=== PATIENT | female | born 1960 | race Caucasian/White ===

== ENCOUNTER 2021-06-24 10:43 | Emergency (ER) | payer SELFPAY ==
[~2021-06-24] VITALS: Ht 157.5 cm; Wt 67.1 kg
[2021-06-24 10:46] VITALS: BP 145/72
--- NOTE | 2021-06-24 10:53 | NUR ---
DREW. OPAL FROM [facility] C/O 01/14 CHRONIC BACK PAIN X 1 MONTH. PMH: HTN
--- NOTE | 2021-06-24 11:12 | NUR ---
DR. BRUNNER EVALUATING PT
[2021-06-24] MEDS ORDERED: KETOROLAC 15 MG/ML VIAL IM ONE (11:35)
--- NOTE | 2021-06-24 11:51 | NUR ---
PT TAKEN TO XR VIA W/C.
--- NOTE | 2021-06-24 12:02 | NUR ---
PT TAKEN TO C VIA W/C.
[2021-06-24] MEDS ORDERED: LID5T TP (12:23)
[2021-06-24] MEDS ORDERED: METH-1681 PO (12:23)
[2021-06-24 12:29] VITALS: BP 136/71
--- NOTE | 2021-06-24 12:30 | NUR ---
Patient discharged with v/s stable. Written and verbal after care instructions given FOR CHRONIC BACK PAIN and explained. Patient alert, oriented and verbalized understanding of instructions. Ambulatory with steady gait. All questions addressed prior to discharge. ID band removed. Patient advised to follow up with PMD. Rx of ROBAXINE AND LIDOCAINE given. Patient educated on indication of medication including possible reaction and side effects. Opportunity to ask questions provided and answered.
== END 2021-06-24 12:29 | disposition home or self-care (01) ==
LOC: MED 10:43
DX: M54.50 Low back pain, unspecified (principal); M53.3 Sacrococcygeal disorders, not elsewhere classified; G89.29 Other chronic pain; I10 Essential (primary) hypertension; Z79.899 Other long term (current) drug therapy
CPT/HCPCS: 72100; 96372; 99283; J1885

== ENCOUNTER 2021-09-05 18:50 | Emergency (ER) | payer MEDICAID ==
[~2021-09-05] VITALS: Ht 167.6 cm; Wt 68.0 kg
[~2021-09-05 18:50] MED LIST: LID5T TP; METH-1681 PO
[2021-09-05 19:00] VITALS: BP 138/70
--- NOTE | 2021-09-05 20:00 | NUR ---
PT TAKEN TO RADIOLOGY
[2021-09-05] MEDS ORDERED: AZITHROMYCIN 250 MG TAB PO ONE (21:20)
[2021-09-05] MEDS ORDERED: ACETAMINOPHEN EXTRA STRENGTH 500 MG TAB PO ONE (21:20)
[2021-09-05] MEDS ORDERED: ACET-10509 PO (21:23)
[2021-09-05] MEDS ORDERED: NAPR-54 PO (21:23)
[2021-09-05] MEDS ORDERED: KETOROLAC 30 MG/ML VIAL IM ONE (21:25)
[2021-09-05 21:54] VITALS: BP 142/67
[2021-09-05] MEDS ORDERED: ONDANSETRON 4 MG ODT PO ONE (22:20)
--- NOTE | 2021-09-05 23:20 | NUR ---
Patient discharged with v/s stable. Written and verbal after care instructions given and explained. Patient alert, oriented and verbalized understanding of instructions. Ambulatory with steady gait. All questions addressed prior to discharge. ID band removed. Patient advised to follow up with PMD. Rx of NAPROXEN AND TYLENOL EXTRA STRENGTH given. Patient educated on indication of medication including possible reaction and side effects. Opportunity to ask questions provided and answered.KORTNEY CALLED TO TAKE HER TO A [facility].
== END 2021-09-05 23:20 | disposition home or self-care (01) ==
LOC: MED 18:50
DX: M25.552 Pain in left hip (principal); R19.7 Diarrhea, unspecified; M54.9 Dorsalgia, unspecified; I10 Essential (primary) hypertension; Z79.899 Other long term (current) drug therapy
CPT/HCPCS: 72170; 73502; 96372; 99284; J1885; Q0162

== ENCOUNTER 2021-09-09 03:39 | Emergency (ER) | payer SELFPAY ==
[~2021-09-09] VITALS: Ht 162.6 cm; Wt 65.8 kg
[2021-09-09 03:39] VITALS: BP 134/70
[~2021-09-09 03:39] MED LIST changes: +ACET-10509 PO; +NAPR-54 PO
--- NOTE | 2021-09-09 03:39 | NUR ---
TO BED AMBULATORY
[2021-09-09] MEDS ORDERED: HYDROcodone/APAP 5/325 MG 1 TAB TAB PO ONE (03:55)
--- NOTE | 2021-09-09 04:17 | NUR ---
61 Y.O F BIBA WITH C/O CHRONIC BACK PAIN, HOMELESS, WITH MULTIPLE FALLS. PT COMPLAINS OF 10/10 PAIN IN HER BACK AND L LEG. PT ALSO STATES SHE HAS DIAHRREA. VITAL SIGNS WNL, A&PX4, SKING INTACT, NO SOB, NO CHEST PAIN. PT RESTING IN BED.
[2021-09-09] MEDS ORDERED: KETOROLAC 30 MG/ML VIAL IM ONE (05:45)
--- NOTE | 2021-09-09 05:45 | NUR ---
PT REQUESTING TO TALK TO ERMD, MADE AWARE
[2021-09-09] MEDS ORDERED: KETOROLAC 30 MG/ML VIAL ONE (05:46)
[2021-09-09 05:53] VITALS: BP 134/70
--- NOTE | 2021-09-09 05:53 | NUR ---
Patient discharged with v/s stable. Written and verbal after care instructions given and explained. Patient verbalized understanding. Ambulatory with steady gait. All questions addressed prior to discharge. Advised to follow up with PMD.
--- NOTE | 2021-09-09 05:55 | NUR ---
RECIEVED A VERBAL ORDER FOR 30MG OF KETOROLAC, ADMINISTERED IN THE LEFT DELTOID AT 05:50.
--- NOTE | 2021-09-09 05:56 | NUR ---
PT REQUESTING TO TALK TO JOSE MARTIN BEWFORE LEAVINGMD MADE AWARE
[2021-09-09] MEDS ORDERED: ACET-8386 PO (17:08)
[2021-09-10] MEDS ORDERED: TRAM50TA1 PO (08:17)
[2021-09-10] MEDS ORDERED: NAPR-1704 PO (08:17)
== END 2021-09-09 05:53 | disposition home or self-care (01) ==
LOC: MED 03:39
DX: M54.50 Low back pain, unspecified (principal); I10 Essential (primary) hypertension; Z79.899 Other long term (current) drug therapy
CPT/HCPCS: 99283; J1885

== ENCOUNTER 2021-09-10 07:07 | Emergency (ER) | payer SELFPAY ==
[~2021-09-10] VITALS: Ht 157.5 cm; Wt 63.5 kg
[~2021-09-10 07:07] MED LIST changes: +ACET-8386 PO
[2021-09-10 07:10] VITALS: BP 127/76
[2021-09-10] MEDS ORDERED: traMADol 50 MG TAB PO ONE (07:50)
[2021-09-10] MEDS ORDERED: IBUPROFEN 600 MG TAB PO ONE (07:50)
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
[2021-09-10] MEDS ORDERED: NAPR-1704 PO (08:17)
[2021-09-10] MEDS ORDERED: TRAM50TA1 PO (08:17)
--- NOTE | 2021-09-10 08:32 | NUR ---
ER/[facility] [place] CALLED [facility] PRE DR PEREZ FOR MINE GEOLOGIST TO HELP PT WITH HOMELESS CUSTODIAL PLACEMENT. NAREN SPOKE TO RIP SHE STS" NO ONE WILL BE ABLE TO HELP HER UNTIL 12:30PM TODAY." I CALLED BACK LEFT A VOICE MESSAGE ON RIP PHONE PT WILL BE WAITING FOR [facility] IN [facility]. HOUSE GLADYS MCKENZIE NOTIFTED.
--- NOTE | 2021-09-10 08:43 | NUR ---
Patient discharged with v/s stable. Written and verbal after care instructions given and explained. Patient alert, oriented and verbalized understanding of instructions. Ambulatory with steady gait. All questions addressed prior to discharge. ID band removed. Patient advised to follow up with PMD. Rx of ULTRAM,NAPROSYN given. Patient educated on indication of medication including possible reaction and side effects. Opportunity to ask questions provided and answered.
--- NOTE | 2021-09-10 08:44 | NUR ---
2ND CALL LEFT FOR [facility] DEPARTMENT SPECIALIST WITH PT INFO.
[2021-09-10 08:45] VITALS: BP 122/62
--- NOTE | 2021-09-10 08:55 | NUR ---
RIP FROM [facility]ROUGH OPERATOR CALLED BACK RIP REITERATED "NO ONE WILL BE ABLE TO HELP HER UNTIL 12:30PM TODAY." I INFORMED RIP I LET THE PT AND DR PEREZ KNOW ABOUT THE LONG WATITING TIME. PT STS "I WILL WAIT IN LOBBY FOR THROUGH OPERATOR." BREAKFAST AND CLEAN CLOTHES GIVEN.
== END 2021-09-10 08:43 | disposition home or self-care (01) ==
LOC: MED 07:07
DX: M54.50 Low back pain, unspecified (principal); G89.29 Other chronic pain; I10 Essential (primary) hypertension; Z79.899 Other long term (current) drug therapy; Z59.00 Homelessness unspecified
CPT/HCPCS: 99283

== ENCOUNTER 2021-09-13 09:04 | Emergency (ER) | payer MEDICAID ==
[~2021-09-13] VITALS: Ht 157.5 cm; Wt 54.4 kg
[~2021-09-13 09:04] MED LIST changes: +NAPR-1704 PO; +TRAM50TA1 PO
--- NOTE | 2021-09-13 09:06 | NUR ---
PT DAIA TO ER BED 06.
--- NOTE | 2021-09-13 09:07 | NUR ---
PT AMBULATED USING WALKER TO RESTROOM
[2021-09-13 09:09] VITALS: BP 132/69
--- NOTE | 2021-09-13 09:10 | NUR ---
PT AMBULATED USING WALKER BACK TO ROOM
--- NOTE | 2021-09-13 09:15 | NUR ---
DR. BENITEZ AT BEDSIDE EVALUATING PT.
--- NOTE | 2021-09-13 09:52 | NUR ---
PT TAKEN TO XRAY VIA TOMMY
--- NOTE | 2021-09-13 10:15 | NUR ---
PT BROUGHT BACK FROM [facility] VIA TOMMY
[2021-09-13] MEDS ORDERED: IBUPROFEN 600 MG TAB PO ONE (11:10)
[2021-09-13 11:20] VITALS: BP 139/90
--- NOTE | 2021-09-13 12:08 | NUR ---
Patient discharged with v/s stable. Written and verbal after care instructions given and explained. Patient verbalized understanding. Ambulatory with steady gait. All questions addressed prior to discharge. Advised to follow up with PMD. HOMELESS RESOURCE PACKET, FOOD AND TRANSPORT PROVIDED
--- NOTE | 2021-09-13 12:09 | NUR ---
The patient's care was reviewed and supervised by Allie Moran RN.
[2021-09-13] MEDS ORDERED: FURO-572 PO (22:40)
== END 2021-09-13 12:08 | disposition home or self-care (01) ==
LOC: MED 09:04
DX: S30.0XXA Contusion of lower back and pelvis, initial encounter (principal); S80.12XA Contusion of left lower leg, initial encounter; J44.9 Chronic obstructive pulmonary disease, unspecified; F17.210 Nicotine dependence, cigarettes, uncomplicated; W19.XXXA Unspecified fall, initial encounter; Y93.89 Activity, other specified; Y92.89 Other specified places as the place of occurrence of the external cause; Y99.8 Other external cause status
CPT/HCPCS: 72100; 99284

== ENCOUNTER 2021-09-13 18:44 | Emergency (ER) | payer MEDICAID ==
[~2021-09-13] VITALS: Ht 157.5 cm; Wt 68.0 kg
[2021-09-13 18:44] VITALS: BP 109/80
--- NOTE | 2021-09-13 18:44 | NUR ---
TO LOBBY A/W BED, BIBA WITH C/O BACK AND GEN WEAKNESS
[2021-09-13] MEDS ORDERED: ACETAMINOPHEN EXTRA STRENGTH 500 MG TAB PO ONE (20:50)
[2021-09-13] MEDS ORDERED: IBUPROFEN 600 MG TAB PO ONE (20:50)
[2021-09-13] MEDS ORDERED: FURO-572 PO (22:40)
[2021-09-14 00:09] VITALS: BP 115/78
--- NOTE | 2021-09-14 00:09 | NUR ---
Patient discharged. Written and verbal after care instructions given and explained. Patient alert, oriented and verbalized understanding of instructions. Ambulatory with steady gait. All questions addressed prior to discharge. ID band removed. Patient advised to follow up with PMD. Rx of Furosemide given. Patient educated on indication of medication including possible reaction and side effects. Opportunity to ask questions provided and answered.
== END 2021-09-14 00:09 | disposition home or self-care (01) ==
LOC: MED 18:44
DX: M25.551 Pain in right hip (principal); M25.552 Pain in left hip; K76.9 Liver disease, unspecified; Z20.822 Contact with and (suspected) exposure to COVID-19; R60.9 Edema, unspecified; J44.9 Chronic obstructive pulmonary disease, unspecified; I10 Essential (primary) hypertension; F17.200 Nicotine dependence, unspecified, uncomplicated; Z71.6 Tobacco abuse counseling; Z79.899 Other long term (current) drug therapy; Z79.891 Long term (current) use of opiate analgesic; Z79.1 Long term (current) use of non-steroidal anti-inflammatories (NSAID); Z88.2 Allergy status to sulfonamides; W18.39XA Other fall on same level, initial encounter; Y92.89 Other specified places as the place of occurrence of the external cause; Y93.89 Activity, other specified; Y99.8 Other external cause status
CPT/HCPCS: 71045; 72170; 72192; 99285